=== PATIENT | female | born 1985 | race Caucasian/White ===

== ENCOUNTER 2023-11-03 17:51 | Emergency (ER) | payer OTHER, SELFPAY ==
[2023-11-03 18:06] VITALS: BP 181/100; PULSE 84; TEMP 37.3; O2SAT 98; BMI 40.1
--- NOTE | 2023-11-03 18:19 | US_ITS ---
The [address] [address] Patient Name: CALVIN LIMON MRN: [id number] date: 1985 Sex: F Assigned Patient Location: ER Current Patient Location: ER Accession/Order Number: [id number] Exam Date: 11/03/2023 18:33 Report Date: 11/03/2023 21:09 At the request of: SCOTT NEWELL Procedure: US venous doppler LE LT US venous doppler LE LT, 11/03/2023 5:33 PM CDT: History: Swelling, pain. Comparison: None. Technique: Grayscale, color Doppler, and spectral Doppler imaging of the deep veins of the left lower extremity were performed. Findings: The deep veins of the left lower extremity demonstrate normal compression, Spectral flow, and color Doppler signal. There is no evidence of deep vein thrombosis. There are varicose veins in the left thigh. US/US venous doppler LE LT Impression: No evidence of deep vein thrombosis within the left lower extremity. Electronically authenticated by: BRI WHITTAKER Date: 11/03/2023 21:09
--- NOTE | 2023-11-03 18:26 | XR_ITS ---
The [address] [address] Patient Name: CALVIN LIMON MRN: [id number] date: 1985 Sex: F Assigned Patient Location: ER Current Patient Location: ER Accession/Order Number: [id number] Exam Date: 11/03/2023 19:10 Report Date: 11/03/2023 20:17 At the request of: SCOTT NEWELL Procedure: XR knee LT 3V IMAGES REVIEWED: XR knee LT 3V COMPARISON: None available. CLINICAL INDICATION: pain FINDINGS/IMPRESSION: 1. No evidence of acute osseous abnormality of the left knee. 2. No significant effusion. 3. Mild degenerative change. 4. Apparent venous varicosities and mild diffuse subcutaneous edema. Electronically authenticated by: GREGG GUY Date: 11/03/2023 20:17
--- NOTE | 2023-11-03 18:27 | ED_ITS ---
HPI - Extremity Problem General Chief complaint: Extremity Problem, Nontraumatic Stated complaint: LE INJURY Time Seen by Provider: 11/03/23 18:16 Source: patient Mode of arrival: walk-in Limitations: no limitations History of Present Illness HPI Narrative: 38 year old female presents to the ED for left leg pain, swelling. Onset was one week ago. The pain started in the knee area, but is now up and down the leg. Denies fever, chills, injury, weakness, N/T. She has hx varicose veins. Related Data Home Medications ?Medication ?Instructions ?Recorded ?Confirmed dextroamphetamine-amphetamine 20 40 mg PO DAILY 11/03/23 11/03/23 mg tablet meloxicam 11/03/23 oxcarbazepine 150 mg tablet 150 mg PO DAILY 11/03/23 11/03/23 Allergies Allergy/AdvReac Type Severity Reaction Status Date / Time No Known Drug Allergies Allergy Verified 11/03/23 18:12 Review of Systems ROS Constitutional Denies: fever or chills Cardiovascular Reports: swelling of feet/ankles; Denies: chest pain Respiratory Denies: shortness of breath Gastrointestinal Denies: abdominal pain Musculoskeletal Reports: extremity pain; Denies: back pain Integumentary/Breast Denies: rash or redness Neurological Denies: numbness in extremities or weakness in extremities Exam Constitutional Vital Signs, click to edit/add: Last Vital Signs Temp 99.2 F 11/03/23 18:06 Pulse 84 11/03/23 18:06 Resp 20 11/03/23 18:06 BP 160/90 H 11/03/23 19:08 Pulse Ox 98 11/03/23 18:06 O2 Del Method Room Air 11/03/23 18:06 Common normals: no apparent distress and oriented x3 General appearance: cooperative Eye Common normals: conjunctivae normal and no scleral icterus Neck & C-Spine Common normals: supple Chest Chest: symmetrical chest wall rise Respiratory Common normals: normal respiratory effort Effort & inspection: able to speak in complete sentences and symmetric chest movement Cardio Common normals: regular rate Peripheral pulses: posterior tibial pulses present and dorsalis pedis pulses present Extremity Other: Tenderness noted to left knee area. Varicose veins noted to BLE. Swelling to LLE, mild. Tenderness to left knee, calf, and upper posterior leg. No erythema, increased warmth, or open wounds noted. Distal sensation intact. Neuro Common normals: oriented x3 Sensorium/orientation: awake and alert Speech: speech normal Gait (neuro): normal gait Course Vital Signs Vital signs: Vital Signs Temperature 99.2 F 11/03/23 18:06 Pulse Rate 84 11/03/23 18:06 Respiratory Rate 20 11/03/23 18:06 Blood Pressure 181/100 H 11/03/23 18:06 Pulse Oximetry 98 11/03/23 18:06 Oxygen Delivery Method Room Air 11/03/23 18:06 Temperature 99.2 F 11/03/23 18:06 Pulse Rate 84 11/03/23 18:06 Respiratory Rate 20 11/03/23 18:06 Blood Pressure 160/90 H 11/03/23 19:08 Pulse Oximetry 98 11/03/23 18:06 Oxygen Delivery Method Room Air 11/03/23 18:06 MDM - Extremity (Nontraumatic) MDM Narrative Medical decision making narrative: Venous Doppler was negative for DVT. X-ray of the knee showed venous varicosities and mild diffuse subcutaneous edema, no significant effusion. Findings were discussed with the patient. She was encouraged to follow up with her pcp and a vascular specialist for a recheck, further evaluation and treatment. Differential Diagnosis Differential diagnosis: Likely superficial thrombophlebitis, lower extremity edema and deep vein thrombosis of lower extremity Medical Records Attestation: I reviewed the patient's medical records. Imaging Data Venous US: Attestation: I have reviewed the pertinent imaging results. Radiologist's impression: ITS Impressions Venous Doppler Study 11/03/23 18:19 Impression: No evidence of deep vein thrombosis within the left lower extremity. Electronically authenticated by: BRI WHITTAKER Date: 11/03/2023 21:09 X-ray knee: Attestation: I have reviewed the pertinent imaging results. Radiologist's impression: ITS Impressions Venous Doppler Study 11/03/23 18:19 Impression: No evidence of deep vein thrombosis within the left lower extremity. Electronically authenticated by: BRI WHITTAKER Date: 11/03/2023 21:09 FINDINGS/IMPRESSION: 1. No evidence of acute osseous abnormality of the left knee. 2. No significant effusion. 3. Mild degenerative change. 4. Apparent venous varicosities and mild diffuse subcutaneous edema. Electronically authenticated by: GREGG GUY Date: 11/03/2023 20:17 Discharge Plan Discharge Stand Alone Forms: Portal Instructions Chief Complaint: Extremity Problem, Nontraumatic Clinical Impression: Left leg pain, Varicose veins of bilateral lower extremities with pain Patient Disposition: Home, Self-Care Time of Disposition Decision: 21:13 Condition: Good Mode of Transportation: Private Vehicle Prescriptions / Home Meds: No Action dextroamphetamine-amphetamine 20 mg tablet 40 mg PO DAILY oxcarbazepine 150 mg tablet 150 mg PO DAILY Rx Instructions: Not started meloxicam Print Language: Romanian Instructions: Leg Pain (ED) Referrals: [facility] [Primary Care Provider] - 1 week Margoth Rose MD [Physician] - 1 week
[2023-11-03 19:08] VITALS: BP 160/90
[2023-11-03] MEDS: OXYCODONE HCL/ACETAMINOPHEN 5MG/325MG 2 TAB PO (19:40)
[2023-11-03 21:18] VITALS: BP 160/90
== END 2023-11-03 21:19 | disposition home or self-care (01) ==
PROVIDERS: Emergency Provider Emergency Medicine
DX: I83.813 Varicose veins of bilateral lower extremities with pain (principal)
CPT/HCPCS: 73562; 93971; 99284